=== PATIENT | female | born 1995 | race Hispanic/Latino ===

== ENCOUNTER 2024-05-02 18:28 | Inpatient (IN) | payer MEDICAID, OTHER, SELFPAY ==
[~2024-05-02 18:28] MED LIST: Bupivacaine 0.25% HCL 30 ML VIAL ONE
[2024-05-02 18:51] VITALS: BMI 30.9
[2024-05-02] MEDS ORDERED: hydrALAZINE 20 MG/ML VIAL SLOW IVP PRN ×2 (19:31→20:20)
[2024-05-02] MEDS ORDERED: Methylergonovine 0.2 MG/ML VIAL IM PRN (20:20)
[2024-05-02] MEDS ORDERED: Acetaminophen 500 MG TAB PO PRN (20:20)
[2024-05-02] MEDS ORDERED: Ibuprofen 800 MG TAB PO PRN (20:20)
[2024-05-02] MEDS ORDERED: Ondansetron PF 4 MG/2 ML Vial IVP PRN (20:20)
[2024-05-02] MEDS ORDERED: Tranexamic Acid 1,000 MG/10 ML VIAL IVP PRN (20:20)
[2024-05-02] MEDS ORDERED: Misoprostol 200 MCG TAB PR PRN (20:20)
[2024-05-02] MEDS ORDERED: Carboprost 250 MCG/ML AMP IM PRN (20:20)
[2024-05-02] MEDS ORDERED: Diphenoxylate HCl/Atropine Tablet PO PRN (20:20)
[2024-05-02] MEDS ORDERED: Promethazine HCl 25 MG/ML VIAL IM PRN (20:20)
[2024-05-02] MEDS ORDERED: Oxytocin 30 units/NS 500 ML 500 ML IV SCH ×2 (20:30)
[2024-05-02] MEDS ORDERED: Lactated Ringer's 1,000 ML IV SCH (20:30)
[2024-05-02 20:37] LABS: Hematocrit 36.7 % (34.9-44.5); Hemoglobin 13.3 g/dL (12.0-15.5); Mean Corpuscular HGB CONC 36.2 g/dL (32.0-36.0); Mean Corpuscular Hemoglobin 32.5 pg (27.0-33.0); Mean Corpuscular Volume 89.7 fL (81.6-98.3); Platelet Count 228 10x3/uL (150-450); RBC Distribution Width 13.2 % (11.5-14.5); Red Blood Cell (RBC) Count 4.09 10x6/uL (3.90-5.03); White Blood Cell (WBC) Count 9.6 10x3/uL (3.5-10.5)
[2024-05-02 21:05] LABS: HBsAg Index 0.16 S/CO (0-0.99); Hep B Surf Ag - L&D Non-Reactive S/CO (NonReactive)
[2024-05-02 21:06] LABS: Syphilis Antibody Nonreactive (Nonreactive); Syphilis Antibody Index 0.04 S/CO (<1.00 Non-Reactive)
[2024-05-02] MEDS: fentaNYL/Ropivacaine Epidural 100 ML ONE (22:31)
[2024-05-03] MEDS: Lidocaine 1% (PF) 30 ML VIAL SC PRN (04:49)
[2024-05-03] MEDS ORDERED: diphenhydrAMINE 25 MG CAP PO PRN (07:33)
[2024-05-03] MEDS ORDERED: hydrALAZINE 20 MG/ML VIAL SLOW IVP PRN (07:33)
[2024-05-03] MEDS ORDERED: Bisacodyl 10 MG SUPP PR PRN (07:33)
[2024-05-03] MEDS ORDERED: Lanolin Ointment 7 GM TUBE TOP PRN (07:33)
[2024-05-03] MEDS ORDERED: Ondansetron PF 4 MG/2 ML Vial IVP PRN (07:33)
[2024-05-03] MEDS ORDERED: Milk Of Magnesia 30 ML UDCUP PO PRN (07:33)
[2024-05-03] MEDS ORDERED: HYDROcodone/Acetaminophen 5/325 mg Tablet PO PRN (07:33)
[2024-05-03] MEDS: Acetaminophen 500 MG TAB PO SCH (09:17)
[2024-05-03] MEDS: Lactated Ringer's 1,000 ML IV SCH (09:17)
[2024-05-03] MEDS: Ferrous Sulfate 325 MG TAB PO SCH (09:21)
[2024-05-03] MEDS: Docusate 100 MG CAP PO SCH (09:30)
[2024-05-03] MEDS: Prenatal Vitamin 1 TAB PO SCH (09:30)
[2024-05-03] MEDS: HYDROcodone/Acetaminophen 5/325 mg Tablet PO PRN (11:49)
[2024-05-03] MEDS: Ibuprofen 800 MG TAB PO SCH (13:20)
[2024-05-04] MEDS: Benzocaine-Menthol 82.5 ML CAN TOP PRN (05:34)
[2024-05-04] MEDS: Boostrix 0.5 ML (Tdap) VIAL (>/=7 yrs of age) IM ONE (07:39)
[2024-05-04] MEDS: Ibuprofen 800 MG TAB PO SCH (07:40)
[2024-05-04 07:58] VITALS: BP 107/63; TEMP 98.1
== END 2024-05-04 19:05 | disposition home or self-care (01) | DRG 807 ==
LOC: CSHLD/OP 18:28 → CSHLD 20:21 → CSHPP 05-03 08:11
PROVIDERS: ADMIT Family Medicine; ATTEND Family Medicine
PROC: 10E0XZZ Delivery of Products of Conception, External Approach (ICD-10-PCS; principal; 2024-05-03)
PROC: 0W8NXZZ Division of Female Perineum, External Approach (ICD-10-PCS; 2024-05-03)
DX: O69.81X0 Labor and delivery complicated by cord around neck, without compression, not applicable or unspecified (principal); Z37.0 Single live birth; Z3A.39 39 weeks gestation of pregnancy; Z79.82 Long term (current) use of aspirin
CPT/HCPCS: 36415; 85027; 86780; 86850; 86900; 86901; 87340; J0665; J2001